=== PATIENT | male | born 1955 | race American Indian/Alaskan Native ===

== ENCOUNTER 2016-12-26 13:30 | Emergency (ER) | payer OTHER ==
[2016-12-26] MEDS ORDERED: NACL 0.9% 1000 ML 1,000 ML IV ONE ×3 (14:33→18:44)
--- NOTE | 2016-12-26 14:38 | Emergency Department Report ---
ED Syncope HPI - General Chief Complaint: Syncope Stated Complaint: LOW BP Time Seen by Provider: 12/26/16 14:26 Source: patient, family - History of Present Illness Initial Comments: 61 years old male with no significant positives medical history except for hepatitis C and arthritis for which she's taken tramadol, he presented today with multiple syncopal episodes, started this morning, his blood pressure was low in the ER 88/52, denied any chest pain shortness of breath nausea or vomiting no diarrhea, he states he's been eating and drinking well with good appetite. Timing/Prior Episodes: multiple episodes today Precipitating Factors: Positive: lightheadedness Context: standing Loss of Consciousness: dazed Current Symptoms: lightheadedness - Related Data Allergies/Adverse Reactions: Allergies No Known Allergies Allergy (Unverified 12/26/16 14:15) Home Medications: Ambulatory Orders Denver-3/Dha/Epa/Fish Oil [[place] 3 500 Softgel] 1 each PO DAILY 12/26/16 ED Review of Systems ROS: Stated complaint: LOW BP Other details as noted in HPI Comment: All other systems reviewed and negative Constitutional: denies: chills, fever Respiratory: denies: cough, orthopnea, shortness of breath Cardiovascular: palpitations. denies: chest pain Gastrointestinal: denies: abdominal pain, nausea, vomiting, diarrhea, constipation, hematemesis Genitourinary: denies: urgency, dysuria, hematuria Musculoskeletal: denies: back pain Neurological: denies: headache, weakness, numbness, paresthesias ED Past Medical Hx - Past Medical History Previous Medical History?: Yes Additional medical history: HEP C - Surgical History Past Surgical History?: No - Social History Smoking Status: Former Smoker Substance Use Type: None - Medications Home Medications: Home Medications Medication Instructions Recorded Confirmed Last Taken Type Denver-3/Dha/Epa/Fish Oil [[place] 3 1 each PO DAILY 12/26/16 12/26/16 1 Day Ago History 500 Softgel] ED Physical Exam - General Limitations: No Limitations General appearance: alert, in no apparent distress - Head Head exam: Present: atraumatic, normocephalic - Eye Eye exam: Present: normal appearance, PERRL - ENT ENT exam: Present: normal exam - Neck Neck exam: Present: normal inspection, full ROM. Absent: meningismus, lymphadenopathy - Respiratory Respiratory exam: Present: normal lung sounds bilaterally. Absent: respiratory distress, wheezes - Cardiovascular Cardiovascular Exam: Present: tachycardia. Absent: systolic murmur, diastolic murmur - GI/Abdominal GI/Abdominal exam: Present: soft. Absent: distended, tenderness, guarding, rebound, rigid - Back Exam Back exam: Present: normal inspection. Absent: tenderness, CVA tenderness (R), CVA tenderness (L) - Neurological Exam Neurological exam: Present: alert, oriented X3, CN II-XII intact, normal gait, reflexes normal. Absent: motor sensory deficit - Skin Skin exam: Present: warm, dry, intact, normal color ED Course Vital Signs 12/26/16 12/26/16 12/26/16 14:05 15:46 16:07 Temperature 98.3 F 97.6 F Pulse Rate 98 H 80 80 Respiratory 18 18 Rate Blood Pressure 86/53 Blood Pressure 98/63 120/71 [Left] O2 Sat by Pulse 100 100 100 Oximetry 12/26/16 12/26/16 12/26/16 17:01 17:22 19:00 Temperature Pulse Rate 80 94 H 92 H Respiratory 17 14 Rate Blood Pressure Blood Pressure 132/66 141/82 [Left] O2 Sat by Pulse 100 100 Oximetry 12/26/16 19:30 Temperature Pulse Rate 92 H Respiratory 14 Rate Blood Pressure Blood Pressure 124/85 [Left] O2 Sat by Pulse 100 Oximetry - Reevaluation(s) Reevaluation #2: 12/26/16 17:54 Patient received 2 L normal saline in the ER his blood pressure now is 125/74 he stated that he is feeling better. Denied any chest pain shortness of breath or loss of consciousness. Reevaluation #3: 12/26/16 19:36 Patient stated that he is feeling better his no longer dizzy and was to walk without dizziness. Informal about his labs and results of the x-rays and CAT scan and advised to follow-up with his primary care physician in the next 2-3 days ED Medical Decision Making - Lab Data Result diagrams: 12/26/16 15:00 12/26/16 15:00 - EKG Data -: EKG Interpreted by Me - EKG Data Interpretation: no acute changes - Radiology Data Radiology results: report reviewed CT brain with possible subacute or chronic ischemia and possibility of demyelinating disease. CT abdomen and pelvis with no acute abnormality, small solid mass in the kidney that will require follow-up CT in 6 months, patient informed. Critical care attestation.: If time is entered above; I have spent that time in minutes in the direct care of this critically ill patient, excluding procedure time. ED Disposition Clinical Impression: Dizziness, Abdominal pain Disposition: DC-01 TO HOME OR SELFCARE Is pt being admited?: No Condition: Stable Instructions: Dizziness (ED) Referrals: PRIMARY CARE, [Primary Care Provider] - 3-5 Days Forms: Work/School Release Form(ED)
[2016-12-26 15:21] LABS: Basophils % (Auto) 0.5 % (0.0-1.8); Eosinophils % (Auto) 0.1 % (0.0-4.3); Hematocrit 27.9 % (35.5-45.6); Hemoglobin 9.2 gm/dl (11.8-15.2); Mean Corpuscular HGB Conc 33 % (32-34); Mean Corpuscular Hemoglobin 30 pg (28-32); Mean Corpuscular Volume 90 fl (84-94); Platelet Count 172 K/mm3 (140-440); Red Blood Count 3.09 M/mm3 (3.65-5.03); Red Cell Distribution Width 13.1 % (13.2-15.2); White Blood Count 8.1 K/mm3 (4.5-11.0)
--- NOTE | 2016-12-26 15:25 | XRay Report ---
CHEST ONE VIEW INDICATION: Syncope. COMPARISON: None similar. FINDINGS: Portable, single, frontal chest radiograph demonstrates normal cardiomediastinal silhouette. Clear lungs. Mild bony degenerative changes. Extrinsic EKG leads. CONCLUSION: No acute disease in the chest. Thank you for the opportunity to participate in this patient's care.
[2016-12-26 15:35] LABS: Creatine Kinase MB 3.5 ng/mL (0.0-4.0)
[2016-12-26 15:36] LABS: Albumin 3.6 g/dL (3.9-5); Albumin/Globulin Ratio 1.2 %; Anion Gap 21 mmol/L; Bilirubin,Direct 0.3 mg/dL (0-0.2); Bilirubin,Indirect 0.3 mg/dL; Bilirubin,Total 0.6 mg/dL (0.1-1.2); Blood Urea Nitrogen 46 mg/dL (9-20); Calcium 8.9 mg/dL (8.4-10.2); Carbon Dioxide 20 mmol/L (22-30); Chloride 105.2 mmol/L (98-107); Creatine Kinase 222 units/L (55-170); Glucose 133 mg/dL (75-100); Potassium 5.7 mmol/L (3.6-5.0); Sodium 140 mmol/L (137-145); Total Protein 6.6 g/dL (6.3-8.2)
[2016-12-26 17:19] LABS: Bilirubin,Urine NEG (Negative); Blood,Urine NEG (Negative); Ketones,Urine TR mg/dL (Negative); Leukocyte Esterase,Urine NEG (Negative); Nitrite,Urine NEG (Negative); Protein,Urine <15 mg/dL mg/dL (Negative); Urobilinogen,Urine < 2.0 mg/dL (<2.0)
--- NOTE | 2016-12-26 17:39 | Cat Scan Report ---
FINAL REPORT PROCEDURE: CT HEAD/BRAIN WO CON TECHNIQUE: Computerized tomography of the head was performed without contrast material. HISTORY: syncope COMPARISON: No prior studies are available for comparison. FINDINGS: Mild mucosal thickening is seen in the left sphenoid sinus. Mastoid air cells are clear. No calvarial fracture is seen. Cerebral ventricles are normal in size. Vague hypodensities are seen in the supratentorial white matter, primarily in a periventricular distribution. Findings may be due to subacute to chronic small vessel ischemic changes. A demyelinating process could cause a similar appearance. No mass effect is seen. No acute intracranial hemorrhage is seen. IMPRESSION: Moderate white matter changes are seen, primarily in a periventricular distribution. Findings are probably due to subacute to chronic small vessel ischemic changes. A demyelinating process would be another possible etiology.
--- NOTE | 2016-12-26 17:48 | Cat Scan Report ---
FINAL REPORT PROCEDURE: CT ABDOMEN PELVIS W CON TECHNIQUE: Computerized axial tomography of the abdomen and pelvis was performed after the IV injection of iodinated nonionic contrast. HISTORY: abdominal pain COMPARISON: No prior studies are available for comparison. FINDINGS: Mild hypoventilatory changes are seen in the dependent portions of the lungs. There is a small pericardial effusion. The spleen and pancreas appear normal. Mild cholelithiasis is seen without suggestion of cholecystitis or biliary ductal dilation. There may be mild fatty infiltration of the liver. Adrenal glands and abdominal aorta are normal in size. 6.7 millimeter cyst is suspected in the lower pole of the right kidney. Possible 3 millimeter cyst is seen in the mid right kidney. Posterior to the inferior pole of the right kidney there is a 4.6 millimeter solid nodule. 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 No ureteral stones or bladder abnormality are seen. Bilateral inguinal hernias are seen containing fat, left greater than right. Phleboliths are seen in the pelvis. No free pelvic fluid is seen. Normal appendix is seen. There is no evidence of bowel obstruction. There is mild increased air within nondilated small and large bowel loops. This could be from swallowed air or possibly enteritis. Moderate to prominent lumbar spondylosis is seen. IMPRESSION: Possible mild changes of enteritis are seen. There is a 4.6 millimeters solid-appearing nodule adjacent to the inferior pole of the right kidney. Followup abdomen CT in 6 months time may be useful to assure stability. Mild cholelithiasis is seen. Bilateral inguinal hernias are seen containing fat.
[2016-12-26] MEDS ORDERED: NACL 0.9% 1000 ML 1,000 ML ONE ×2 (18:37→18:38)
[2016-12-26 20:40] VITALS: BP 119/80
== END 2016-12-26 20:42 | disposition home or self-care (01) ==
LOC: ED 13:30
DX: R42 Dizziness and giddiness (principal); R10.9 Unspecified abdominal pain; Z87.891 Personal history of nicotine dependence
CPT/HCPCS: 36415; 70450; 71010; 74177; 80048; 80074; 81001; 82140; 82550; 82553; 83690; 84484; 85025; 93005; 93010; 96360; 96361; 99285; J7030; Q9967